=== PATIENT | male | born 1955 | race Caucasian/White ===

== ENCOUNTER → 2017-05-10 | Outpatient (CLI) | payer MEDICARE ==
[2014-01-27 10:39] VITALS: BP 149/68
[~2017-05-10] MED LIST: DEXL60CA2 PO; LISI1TAB7 PO; PRAV40TA PO; TRAM50TA PO
--- NOTE | 2017-05-10 18:27 | RAD ---
CT ABDOMEN PELVIS WO CONTRAST dated 05/10/2017 5:59 PM Indication: Pain.LOWER ABDOMINAL PAIN INTO GROIN, NO CONTRAST PER DOCTORS ORDERS
PRIOR CT ABD PELVIS SENT. Comparison: 01/25/2014 Technique: Contiguous axial imaging of the abdomen and pelvis performed without the administration of intravenous contrast. One or more of the following individualized dose reduction techniques were utilized for this examination: 1. Automated exposure control 2. Adjustment of the mA and/or kV according to patient size 3. Use of iterative reconstruction technique Findings: Limited images of lung bases are clear. Heart size within normal limits. No pleural or pericardial effusion. Solid abdominal viscera not well evaluated in the absence of contrast material. No apparent attenuation abnormality of the liver or spleen. Pancreas, adrenal glands unremarkable. The gallbladder is surgically absent. Kidneys are symmetric in size and attenuation. No calcific renal or ureteral stone. No hydronephrosis. Unopacified GI tract is normal in caliber and contour. There are focal inflammatory changes near the descending colon/sigmoid junction with prominent loculated fat anterior to the colon on image 134. No adjacent fluid collection or significant wall thickening. There are scattered diverticula throughout. No lymphadenopathy or ascites. The appendix is normal in caliber. Abdominal aorta normal in caliber. No free fluid or free air. Images of pelvis show nondistended urinary bladder. Prostate gland normal in size. No free fluid or lymphadenopathy. Bone windows show no acute findings. Mild multilevel spondylosis. IMPRESSION: 1. Focal inflammatory changes in the pericolonic fat adjacent to the descending colon/sigmoid junction. In the absence of significant colonic wall thickening, this most likely represents epiploic appendagitis, although mild acute diverticulitis cannot be excluded. Recommend clinical correlation. 2. Otherwise no acute abnormality. Normal appendix. 3. Status post cholecystectomy Electronically signed by: Amador Jhaveri MD (05/10/2017 6:24 PM) [facility]
--- NOTE | 2017-05-10 18:32 | RAD ---
Testicular ultrasound dated 05/10/2017. No comparison available. Clinical indication: Testicle pain. FINDINGS: Right testicle measures 4.7 x 3.4 x 2.6 cm. Left testicle measures 5.4 x 3.8 x 2.2 cm. There is a small testicular cyst on the left. No solid mass. Normal color Doppler flow and waveforms to both testicles. Epididymides are unremarkable. Tiny epididymal head cyst on the right. No significant varicocele. Small bilateral hydrocele. No significant scrotal wall thickening. IMPRESSION: 1. No acute sonographic abnormality. 2. Small left testicular cyst. 3. Small bilateral hydroceles. Electronically signed by: Amador Jhaveri MD (05/10/2017 6:29 PM) [facility]
[2017-05-10 18:36] LABS: ALBUMIN 4.2 g/dL (3.4-5.0); ALBUMIN/GLOBULIN RATIO 1.2 (1.0-1.7); CALCIUM 9.7 mg/dL (8.5-10.1); CREATININE 0.9 mg/dL (0.7-1.3); GFR 85.2; TOTAL BILIRUBIN 0.9 mg/dL (0.2-1.0); TOTAL PROTEIN 7.6 g/dL (6.4-8.2)
[2017-05-10 18:38] LABS: BASO # 0.1 x10^3/uL (0.0-0.2); BASO % 1 % (0-3); EOS # 0.2 x10^3/uL (0.0-0.7); EOS % 2 % (0-3); HEMOGLOBIN 16.2 g/dL (13.0-17.5); LYMPH # 3.2 x10^3/uL (1.0-4.8); LYMPH % 31 % (24-48); MEAN CORPUSCULAR HEMOGLOBIN 31 pg (25-35); MEAN CORPUSCULAR HGB CONC 36 g/dL (31-37); MEAN CORPUSCULAR VOLUME 86 fL (79-100); MONO # 0.8 x10^3/uL (0.0-1.1); MONO % 8 % (0-9); NEUT % 58 % (31-73); PLATELET COUNT 244 x10^3/uL (140-400); RED BLOOD COUNT 5.21 x10^6/uL (4.30-5.70); RED CELL DISTRIBUTION WIDTH 13.7 % (11.5-14.5); WHITE BLOOD COUNT 10.4 x10^3/uL (4.0-11.0)
[2017-05-10 21:20] LABS: SEDIMENTATION RATE 12 (0-15)
== END | disposition home or self-care (01) ==
LOC: US 17:25
PROVIDERS: ATTEND Family Medicine
DX: N44.2 Benign cyst of testis (principal); N43.3 Hydrocele, unspecified; M47.899 Other spondylosis, site unspecified; R10.30 Lower abdominal pain, unspecified; Z90.49 Acquired absence of other specified parts of digestive tract
CPT/HCPCS: 36415; 74176; 76870; 80053; 85025; 85651

== ENCOUNTER → 2021-07-04 | Outpatient (CLI) | payer MEDICARE ==
[2014-01-27 10:39] VITALS: BP 149/68
[~2021-07-04] MED LIST changes: +LISI1TAB39 PO; -LISI1TAB7 PO
[2021-07-04 10:10] LABS: ALBUMIN 4.3 g/dL (3.4-5.0); ALBUMIN/GLOBULIN RATIO 1.4 (1.0-1.7); CALCIUM 9.4 mg/dL (8.5-10.1); CREATININE 0.9 mg/dL (0.7-1.3); GFR 84.2; POTASSIUM 4.3 mmol/L (3.5-5.1); TOTAL BILIRUBIN 1.1 mg/dL (0.2-1.0); TOTAL PROTEIN 7.3 g/dL (6.4-8.2)
[2021-07-04 15:03] LABS: CHOLESTEROL/HDL RATIO 4.5
[2021-07-05 01:07] LABS: HEMOGLOBIN A1C 6.8 % (4.8-5.6)
== END ==
LOC: LAB 08:51
PROVIDERS: ATTEND Nurse Practitioner
DX: E78.2 Mixed hyperlipidemia (principal); E11.8 Type 2 diabetes mellitus with unspecified complications
CPT/HCPCS: 36415; 80053; 80061; 83036